=== PATIENT | female | born 2000 | race Two or more races ===

== ENCOUNTER 2025-02-14 11:47 | Emergency (ER) | payer MEDICAID, SELFPAY ==
[2025-02-14 11:48] VITALS: BMI 23.8
[2025-02-14 12:13] VITALS: BP 112/78; PULSE 95; RESP 18; TEMP 37.2; O2SAT 99
--- NOTE | 2025-02-14 13:08 | EDNOTE_ITS ---
ED Headache RME/HPI General Chief Complaint: Headache Stated Complaint: SEVERE MIGRAINES [id number] NAUSEOUS Time Seen by Provider: 02/14/25 12:35 Source: patient Arrival date/time: 02/14/25 11:47 this a 24-year-old female who presented to the emergency department complaints of frontal pressure, nasal congestion. History of allergic symptoms. Has not been taking any allergy medication. Denies blurry vision, no dizziness or syncopal episode. Mode of arrival: ambulatory Limitations: no limitations RME / HPI RME / HPI Narrative: This is a young female 24-year-old that presents to the emergency department complaints of head pain Related Data Previous Rx's ?Medication ?Instructions ?Recorded acetaminophen 500 mg tablet 500 mg PO QID PRN pain #30 tabs 05/14/20 (Tylenol Extra Strength) albuterol sulfate 90 mcg/actuation 1 inh inhalation QI D PRN shortness 05/14/20 aerosol inhaler (ProAir HFA) of breath or wheezing #6. 7 grams amoxicillin 875 mg-potassium 1 tab PO BID #14 tabs clavulanate 125 mg tablet (Augmentin) doxycycline monohydrate 100 mg 100 mg PO BID #14 caps 05/14/20 capsule ondansetron 4 mg disintegrating 4 mg PO Q8H PRN nausea and 05/14/20 tablet vomiting #14 tabs amoxicillin 875 mg-potassium 1 tab PO BID #14 tabs clavulanate 125 mg tablet fluticasone propionate 50 1 spray intranasal QDAY #16 grams 02/14/25 mcg/actuation nasal spray,suspension (Flonase Allergy Relief) loratadine 10 mg tablet (Claritin) 10 mg PO QDAY #30 t abs 02/14/25 pseudoephedrine HCl 30 mg tablet 30 mg PO Q6H #14 tabs 02/14/25 Allergies Allergy/AdvReac Type Severity Reaction Status Date / Time No Known Allergies Allergy Verified 02/14/25 11:51 Review of Systems Review of Systems Systems Reviewed: All systems reviewed, normal except as documented Narrative Review of Systems: Gen: No fever, no chills, no weight loss EYES: No discharge, no visual changes, no pain HEENT: No ear pain, no congestion, no sore throat PULM: No shortness of breath, no cough, no congestion CV: No chest pain, no dyspnea on exertion, no palpitations GI: No nausea, no vomiting, no diarrhea, no pain, no constipation : No frequency, no urgency,? no dysuria Musc/skel: No joint pain, no back pain Skin: No rash? Psyc: No hallucinations, no depression Heme/Lymph: No easy bleeding or bruising tendencies Neuro: No weakness, no headache ED Exam General Limitations: Present no limitations General appearance: Present alert and in no apparent distress Head Head exam: Present atraumatic Eye Eye exam: Present normal appearance, PERRL and EOMI ENT ENT exam: Present normal exam, normal oropharynx and mucous membranes moist Neck Neck exam: Present normal inspection, full ROM and trachea midline Chest Chest inspection: Present normal inspection and symmetric chest wall rise Respiratory Respiratory exam: Present normal lung sounds bilaterally Cardiovascular Cardiovascular exam: Present regular rate, normal rhythm and normal heart sounds Abdominal Exam Abdominal exam: Present soft and normal bowel sounds Extremities Exam Extremities exam: Present normal inspection and full ROM Back Exam Back exam: Present normal inspection and full ROM Neurological Exam Neurological exam: Present alert, oriented X3 and CN II-XII intact Psychiatric Psychiatric exam: Present normal affect and normal mood Skin Skin exam: Present warm, dry, intact and normal color Course Quality Measures none Vital Signs Vital signs: Vital Signs Temperature 99 F 02/14/25 12:13 Pulse Rate 95 02/14/25 12:13 Respiratory Rate 18 02/14/25 12:13 Blood Pressure 112/78 02/14/25 12:13 Pulse Oximetry (%) 99 02/14/25 12:13 Oxygen Delivery Method Room Air 02/14/25 12:13 Headache MDM Narrative MDM Narrative:: Advised sinusitis treatment will be sent to pharmacy. Mirlande to follow-up with PCP Strict ER precautions given Patient data External records reviewed:: [facility] previous records Clinical information provided by:: patient Social determinants that could affect healthcare access:: none Patient has the following chronic illnesses:: No How is presenting disease/condition affected by chronic disease/condition?: no chronic disease Evaluation data The following diagnostics were reviewed and interpreted by me:: other (specify) Lab and/or radiology exams considered but not ordered:: no Interpretation Summary: No Medications / Prescriptions Medications or Prescriptions considered but not ordered:: No Medication administrations:: No Consultations Consultation(s) initiated? (list below): No Diagnosis Differential diagnosis headache: migraine, tension headache and sinusitis Most likely diagnosis given after review of the tests above:: Sinusitis Admission Indicated Admission indicated?: not indicated Admission Request Was there a request for admission?: No Disposition Plan Disposition Plan: Discharge Discharge Attestation Discharge Attestation: The patient and all family members were given an opportunity to ask questions and understood the discharge instructions. Discharge instructions specifically effects, indications for sooner follow up or return to the emergency department, and the expected course of current diagnosis. Patient condition: Stable Discharge Plan Plan Patient Disposition: HOME (Self Care) Patient condition on transfer: Stable Prescriptions/Referrals Prescriptions/Med Rec: New pseudoephedrine HCl 30 mg tablet 30 mg PO Q6H Qty: 14 0RF amoxicillin-pot clavulanate 875-125 mg tablet 1 tab PO BID Qty: 14 0RF fluticasone propionate [Flonase Allergy Relief] 50 mcg/actuation spray,suspension 1 spray intranasal QDAY Qty: 16 0RF Rx Instructions: administer into each nostril loratadine [Claritin] 10 mg tablet 10 mg PO QDAY Qty: 30 0RF No Action amoxicillin-pot clavulanate [Augmentin] 875-125 mg tablet 1 tab PO BID Qty: 14 0RF doxycycline monohydrate 100 mg capsule 100 mg PO BID Qty: 14 0RF ondansetron 4 mg tablet,disintegrating 4 mg PO Q8H PRN (Reason: nausea and vomiting) Qty: 14 0RF acetaminophen [Tylenol Extra Strength] 500 mg tablet 500 mg PO QID PRN (Reason: pain) Qty: 30 0RF albuterol sulfate [ProAir HFA] 90 mcg/actuation HFA aerosol inhaler 1 inh IH QID PRN (Reason: shortness of breath or wheezing) Qty: 6.7 0RF Problem List Clinical Impression: Sinusitis Patient/Caregiver Discharge Instructions Discharge Activity: activity as tolerated Education Materials: ED Sinusitis (Antibiotic Treatment) Additional Instructions: Please follow-up with your primary doctor You were diagnosed with sinusitis, which is inflammation or infection of the sinus cavities, often caused by a virus or bacteria. What You Can Do at Home: * Rest and stay well hydrated. * Use saline nasal spray or perform nasal rinses (e.g., with a Neti pot) to help clear sinus congestion. * Take [id number] medications such as: * Ibuprofen or acetaminophen for pain or fever. * Decongestants (e.g., pseudoephedrine or nasal sprays like oxymetazoline for up to 3 days only). * If you were prescribed antibiotics, take them exactly as directed and finish the entire course. Print Language: Bulgarian Stand Alone Forms: Luci Award Info., Work/School Release, Patient Portal Info Letter PA/HUGO Supervising Physician PA/HUGO Supervising Physician: Dr Amador
== END 2025-02-14 14:33 | disposition home or self-care (01) ==
LOC: SERX 13:12
PROVIDERS: Emergency Provider Emergency Medicine
DX: J32.9 Chronic sinusitis, unspecified (principal)
CPT/HCPCS: 99281